=== PATIENT | male | born 1980 | race Caucasian/White ===

== ENCOUNTER 2019-11-26 15:24 | Emergency (ER) | payer SELFPAY ==
[~2019-11-26] VITALS: Ht 180.3 cm; Wt 77.1 kg
[2019-11-26 15:44] VITALS: BP 134/95
--- NOTE | 2019-11-26 15:45 | NUR ---
pt c/o fever, cough, sob, n/v/d.
--- NOTE | 2019-11-26 16:00 | NUR ---
COVID SWAB OBTAINED IN THE TENT AND WALKED TO LAB.
[2019-11-26 16:12] VITALS: BP 128/89
--- NOTE | 2019-11-26 16:12 | NUR ---
Patient discharged with v/s stable. Written and verbal after care instructions given and explained. Patient alert, oriented and verbalized understanding of instructions. Ambulatory with steady gait. All questions addressed prior to discharge. ID band removed. Patient advised to follow up with PMD. Rx of Robitussin, Ibuprofen, and Tylenol given. Patient educated on indication of medication including possible reaction and side effects. Opportunity to ask questions provided and answered.
--- NOTE | 2019-11-29 03:40 | NUR ---
COVID RESULTS RECEIVED FROM LAB. RESULT- POSITIVE. COPY OF LAB RESULT PLACED IN INFECTION CONTROL MAILBOX.
== END 2019-11-26 16:12 | disposition home or self-care (01) ==
LOC: MED 15:24 → EEVIPCON 15:24 → MED 16:12
DX: B34.9 Viral infection, unspecified (principal); Z20.828 Contact with and (suspected) exposure to other viral communicable diseases
CPT/HCPCS: 99283; U0003

== ENCOUNTER 2020-02-20 07:45 | Emergency (ER) | payer OTHER, SELFPAY ==
[~2020-02-20] VITALS: Ht 180.3 cm; Wt 79.8 kg
[2020-02-20 07:50] VITALS: BP 130/80
[2020-02-20] MEDS ORDERED: NACL 0.9% 1,000 ML IV ONE (08:05)
[2020-02-20] MEDS ORDERED: MORPHINE SULFATE 2 MG/ML SYR IVP ONE (08:05)
[2020-02-20] MEDS ORDERED: KETOROLAC 15 MG/ML VIAL IVP ONE (08:05)
--- NOTE | 2020-02-20 08:17 | NUR ---
39 YEAR OLD MALE COMPLAINS OF RIGHT LOWER QUADRANT ABDOMINAL PAIN X TODAY THAT RADIATES TO GROIN. PT STATES THAT HE HAS SOME NAUSEA, HAS HISTORY OF KIDNEY STONES. PT AOX4, BREATHING EVEN AND UNLABORED, SKIN WARM AND DRY. BED IN LOWEST POSITION, LOCKED, BED RAIL UPX1. PMH - KIDNEY STONES ALLERGIES - NKA
[2020-02-20 08:43] LABS: APPEARANCE,URINE CLEAR (CLEAR); BILIRUBIN,URINE NEGATIVE (NEGATIVE); BLOOD, URINE TRACE-L (NEGATIVE); COLOR,URINE YELLOW (YELLOW); LEUKOCYTE ESTERASE ,URINE NEGATIVE (NEGATIVE); NITRITE, URINE NEGATIVE (NEGATIVE); PH,URINE 5.5 (5.0-9.0); UGLUCOSE NEGATIVE (NEGATIVE)
[2020-02-20 08:48] LABS: BASOPHILS % (AUTO) 0.7 % (0.0-2.0); EOSINOPHILS # (AUTO) 0.1 K/uL (0-0.4); EOSINOPHILS % (AUTO) 1.7 % (0.0-4.0); HEMATOCRIT 40.6 % (36-52); LYMPHOCYTES # (AUTO) 1.8 K/uL (2.0-11.5); LYMPHOCYTES % (AUTO) 36.3 % (20.5-51.1); MEAN CORPUSCULAR HEMOGLOBIN 30 pg (27-31); MEAN CORPUSCULAR HGB CONC 35 g/dL (33-37); MEAN CORPUSCULAR VOLUME 85.7 fL (80-94); MONOCYTES # (AUTO) 0.4 K/uL (0.8-1.0); MONOCYTES % (AUTO) 8.6 % (1.7-9.3); NEUTROPHILS # (AUTO) 2.6 K/uL (1.8-7.7); NEUTROPHILS % (AUTO) 52.7 % (42.2-75.2); PLATELET COUNT (AUTO) 272 K/uL (140-450); RED BLOOD CELL COUNT(AUTO) 4.73 MIL/uL (4.20-6.10); RED CELL DISTRIBUTION WIDTH 12.8 % (11.6-13.7)
[2020-02-20 08:55] LABS: RBC,URINE 0-5 /HPF (0-5); WBC,URINE 0-5 /HPF (0-5)
--- NOTE | 2020-02-20 09:00 | NUR ---
PT ALERT AND AWAKE, BREATHING EVEN AND UNLABORED
[2020-02-20 09:43] LABS: ALBUMIN 4.1 g/dL (3.4-5.0); ANION GAP 13.3 (8-16); CARBON DIOXIDE 26.6 mmol/L (21-32); CREATININE 1.1 mg/dL (0.6-1.3); POTASSIUM 3.9 mmol/L (3.5-5.1); TOTAL BILIRUBIN 0.4 mg/dL (0.0-1.0)
[2020-02-20 10:10] VITALS: BP 136/68
--- NOTE | 2020-02-20 10:10 | NUR ---
Patient discharged with v/s stable. Written and verbal after care instructions about abdominal pain given and explained. Patient alert, oriented and verbalized understanding of instructions. Ambulatory with steady gait. All questions addressed prior to discharge. ID band removed. Patient advised to follow up with PMD. Rx of MOTRIN AND FLOMAX given. Patient educated on indication of medication including possible reaction and side effects. Opportunity to ask questions provided and answered.
== END 2020-02-20 10:10 | disposition home or self-care (01) ==
LOC: MED 07:45
DX: R10.9 Unspecified abdominal pain (principal); N20.0 Calculus of kidney
CPT/HCPCS: 36415; 74176; 80053; 81001; 85025; 96361; 96374; 96375; 99284; J1885; J2270; J7030